=== PATIENT | male | born 2000 | race Caucasian/White ===

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

== ENCOUNTER 2019-02-04 18:05 | Emergency (ER) | payer OTHER, SELFPAY ==
[2019-02-04 18:06] VITALS: BP 133/74; PULSE 66; RESP 16; TEMP 36.6; O2SAT 98; BMI 24.5
--- NOTE | 2019-02-04 18:22 | ED.VISSUMM ---
- ER Visit Summary Date of Service: 02/04/19 Chief Complaint: Left eye foreign body History of Present Illness: The patient is a 18 M who was working with wood developed a left eye foreign body sensation. He irrigated he thinks most of it is gone but still has some irritation. No other injury Physical Examination: After tetracaine was instilled a slit lamp exam was done. Patient has deep and quiet anterior chambers with no foreign body. There is no floor seen uptake. Patient does have some diffuse corneal injection. There is no foreign body on eversion of the eyelid. Emergency Department Course and Treatment: There is no foreign body remnant, patient likely just has some irritation from the foreign body, there is no evidence of corneal abrasion. I reassured. I will treat with bacitracin for 48 hours. Disposition: Discharge stable condition Impression: Left eye foreign body unfound in the ED conjunctivits This note was generated with [employer] dictation software. It may contain incorrect words, spelling, and punctuation that were not noted in review of the chart prior to signing ED Disposition - Plan for ED Patient: Disposition: Home or Assisted Living Instructions: ED Eye Injury Corneal Abrasion Referrals: [facility] Doctor,Out of [Primary Care Provider] - 3-5 Days
[2019-02-04] MEDS: Fluorescein 1 MG STRIP 1 STRIP EACH EYE (18:28)
[2019-02-04] MEDS: Tetracaine 0.5% Ophthalmic Bottle 1 DRP EACH EYE (18:28)
== END 2019-02-04 18:40 | disposition home or self-care (01) ==
PROVIDERS: Emergency Provider Emergency Medicine
DX: H10.32 Unspecified acute conjunctivitis, left eye (principal)
CPT/HCPCS: 99282